=== PATIENT | female | born 1955 | race Caucasian/White ===

== ENCOUNTER 2016-06-16 17:27 | Emergency (ER) | payer MEDICAID ==
[~2016-06-16] VITALS: Ht 167.6 cm; Wt 77.1 kg
[~2016-06-16 17:27] MED LIST: AMOX-263 PO; BUPR75TA4; CARI250T8; CLON0.5T3; DIAZ5TAB3; FLUC150T38 PO; IBUP800T24 PO; NOR10T; OME20GT; PROZAC
[2016-06-16 23:37] VITALS: BP 115/90
== END 2016-06-17 00:12 | disposition home or self-care (01) ==
LOC: EDBD 17:27 → ER 17:33
DX: S93.402A Sprain of unspecified ligament of left ankle, initial encounter (principal); G89.29 Other chronic pain; M54.5 Low back pain; W11.XXXA Fall on and from ladder, initial encounter; Z79.899 Other long term (current) drug therapy; Y93.89 Activity, other specified; Y99.8 Other external cause status; Y92.89 Other specified places as the place of occurrence of the external cause
CPT/HCPCS: 72040; 73610

== ENCOUNTER 2018-01-10 00:58 | Emergency (ER) | payer MEDICAID ==
[~2018-01-10] VITALS: Ht 160 cm; Wt 68.0 kg
[~2018-01-10 00:58] MED LIST changes: +CARI250T; -CARI250T8; +CLON0.5T10; -CLON0.5T3
[2018-01-10 01:39] LABS: Hematocrit 30.1 % (36.0-46.0); Red Blood Cells 3.16 10^6/uL (4.0-5.20)
[2018-01-10 01:45] LABS: Basophils # (auto) 0 uL; Basophils % (auto) 0.6 % (0.0-2.0); Eosinophils # (auto) 0.1 uL; Eosinophils % (auto) 1.4 % (0.0-7.0); Hemoglobin 10.2 g/dL (12.2-16.2); Lymphocytes % (auto) 25.7 % (10.0-50.0); Mean Corpuscular Hemoglobin 32.4 pg (28.0-32.0); Mean Corpuscular Volume 95.3 fL (80.0-100.0); Monocytes # (auto) 0.5 uL; Monocytes % (auto) 6.2 % (0.0-12.0); Neutrophils % (auto) 66.1 % (37.0-80.0); Platelet Count (auto) 212 10^3/uL (140-450); Red Cell Distribution Width 12.7 % (11.8-14.3); White Blood Cell 7.6 10^3/uL (4.4-10.8)
[2018-01-10 01:52] LABS: Albumin 3.2 g/dL (3.4-5.0); BUN/Creatinine Ratio 15.9; Potassium 3.3 mmol/L (3.5-5.1)
[2018-01-10 01:54] LABS: Bilirubin, Total 0.4 mg/dL (0.2-1.0); Total Protein 6.5 g/dL (6.4-8.2)
[2018-01-10] MEDS ORDERED: SODIUM CHLORIDE 0.9% 1,000 ML IVB ONE (02:40)
[2018-01-10 03:08] LABS: INR 0.98 (0.9-1.15); Partial Thromboplastin Time 24.1 sec (23.78-33.04); Prothrombin Time 10.5 sec (9.27-12.13)
[2018-01-10] MEDS ORDERED: LIDOCAINE 1% HCL (LOCAL ANESTH.) INJ 20ML MDV ONE (03:39)
[2018-01-10] MEDS ORDERED: ceFAZolin 1GM/50ML 100 ML IV ONE (05:15)
[2018-01-10] MEDS ORDERED: TETANUS-DIPTH-ACEL PERTUSSIS 0.5ML SYRG IM ONE (05:15)
[2018-01-10] MEDS ORDERED: ceFAZolin 1GM/50ML 50 ML IV ONE (05:50)
[2018-01-10 08:22] VITALS: BP 123/81
== END 2018-01-10 09:58 | disposition home or self-care (01) ==
LOC: EDBD 00:58 → ER 00:58
DX: S81.812A Laceration without foreign body, left lower leg, initial encounter (principal); Z90.49 Acquired absence of other specified parts of digestive tract; Z90.710 Acquired absence of both cervix and uterus; W20.8XXA Other cause of strike by thrown, projected or falling object, initial encounter; Y93.89 Activity, other specified; Y92.89 Other specified places as the place of occurrence of the external cause; Y99.8 Other external cause status
CPT/HCPCS: 12004; 36415; 73590; 80053; 83880; 84484; 85025; 85610; 85730; 93005; 94761; 96365; 96366; 99285; J0690; J2001

== ENCOUNTER 2022-11-22 14:40 | Emergency (ER) | payer MEDICAID, OTHER ==
[~2022-11-22] VITALS: Ht 165.1 cm; Wt 55.0 kg
[~2022-11-22 14:40] MED LIST changes: -CLON0.5T10; +CLON0.5T4; +IBUP-1456 PO; -IBUP800T24 PO
[2022-11-22 16:57] VITALS: BP 134/76
[2022-11-22] MEDS ORDERED: HYDROcodone-ACET 5/325MG TAB PO ONE (18:30)
[2022-11-22] MEDS ORDERED: CYCL-837 PO (18:58)
== END 2022-11-22 19:00 | disposition home or self-care (01) ==
LOC: EDUNIT# 14:40 → EDBD 14:40 → ER 14:40
DX: R51.9 Headache, unspecified (principal); M54.2 Cervicalgia; M54.6 Pain in thoracic spine; M54.59 Other low back pain; M25.511 Pain in right shoulder; M25.512 Pain in left shoulder; F41.9 Anxiety disorder, unspecified; M19.90 Unspecified osteoarthritis, unspecified site; F32.9 Major depressive disorder, single episode, unspecified; Z90.49 Acquired absence of other specified parts of digestive tract; Z90.89 Acquired absence of other organs; Z90.710 Acquired absence of both cervix and uterus; Z98.890 Other specified postprocedural states; V43.62XA Car passenger injured in collision with other type car in traffic accident, initial encounter; Y93.89 Activity, other specified; Y92.89 Other specified places as the place of occurrence of the external cause; Y99.8 Other external cause status
CPT/HCPCS: 70450; 72070; 72100; 72125